=== PATIENT | female | born 1985 | race Caucasian/White ===

== ENCOUNTER → 2017-10-14 | Outpatient (CLI) | payer OTHER ==
[~2017-10-14] MED LIST: IOHEXOL 300 MG/ML 50 ML VIAL. IV ONE; IOHEXOL 300 MG/ML 50 ML VIAL. ONE
--- NOTE | 2017-10-14 15:17 | RAD ---
Hysterosalpingogram 10/14/2017 CLINICAL HISTORY: History of left Oophorectomy. Recurrent miscarriages. TECHNIQUE: After the risks and benefits of the procedure were explained to the patient, written informed consent was obtained. The patient was placed supine on the fluoroscopy table and a speculum was placed into the vagina. The external cervical os was identified and prepped using a Betadine solution. A 7 [place] HSG catheter was advanced through the cervical os into the endometrial canal and the balloon was inflated. 15 cc of Isovue-200 were injected through the catheter under fluoroscopic control. The total fluoroscopic time for this study was 2 minutes 22 seconds. 10 digital spot radiographs were obtained. FINDINGS: The endometrial canal is within normal limits in size and configuration. No filling defect is seen. The left fallopian tube is not visualized consistent with the history of surgically removal. The right fallopian tube is well-visualized. Free spillage of contrast from the distal end of the right fallopian tube into the peritoneal cavity is seen. IMPRESSION: The right fallopian tube is patent. Electronically signed by: Yousif Peterson MD (10/14/2017 3:14 PM) [id number]
== END | disposition home or self-care (01) ==
LOC: RAD 09:56
PROVIDERS: ATTEND Obstetrics & Gynecology
DX: N96 Recurrent pregnancy loss (principal); Z88.0 Allergy status to penicillin
CPT/HCPCS: 58340; 74740